=== PATIENT | male | born 1955 | race Caucasian/White ===

== ENCOUNTER → 2016-07-12 | Outpatient (CLI) | payer OTHER ==
[~2016-07-12] MED LIST: AMLO-110 PO; ASPEC81 PO; GABA-112 PO; HYDR25TA4 PO; IBUP-1449 PO; LISI-461 PO; METO50TA16 PO; MULT-506 PO; PRLSR20 PO; RNXER500 PO; SIMV40TA2 PO; TRAM-10 PO; ZCR20 PO; ZOLP10TA PO
--- NOTE | 2016-07-17 21:57 | PULMONARY FUNCTION TEST ---
INTERPRETATION: The spirometry reveals normal air flow with no change in FEV1 with the use of albuterol.
== END | disposition home or self-care (01) ==
LOC: C.RC 13:56
PROVIDERS: ATTEND Family Medicine
DX: R06.00 Dyspnea, unspecified (principal)

== ENCOUNTER → 2016-07-26 | Outpatient (CLI) | payer OTHER ==
--- NOTE | 2016-07-26 15:34 | DIAGNOSTIC IMAGING REPORT ---
LUMBAR SPINE MRI HISTORY: Back pain SPINAL STENOSIS TECHNIQUE: Multiplanar multisequence MRI of the lumbar spine was performed without the use of contrast. COMPARISON: None. FINDINGS: For the purpose of the report the L5-S1 disc space will be located on axial image 27 of 30. Moderate to significant degenerative disc changes throughout. This is most prominent at L2-L3 and L3-L4. Moderate reactive edematous change of vertebral endplates is seen at L2-L3. L1-L2: No significant central canal or neural foraminal narrowing. L2-L3: Mild/moderate broad-based disc herniation. Moderate impact anterior aspect of the thecal sac. Mild narrowing neuroforamina bilaterally. L3-L4: Broad-based disc herniation with moderate impact anterior thecal sac. Narrowing of the neuroforamina bilaterally. This is considered rather significant. L4-L5: Mild broad-based bulging disc. Moderate narrowing of the neuroforamina bilaterally. No significant impact upon the thecal sac. L5-S1: Broad-based bulging disc in contact with but showing no significant deformity of the thecal sac. Mild narrowing of the neuroforamina bilaterally. IMPRESSION: 1. Significant degenerative disc change L2-L3 and L3- L4. 2. Broad-based disc herniations L2-L3 and L3-L4 with moderate impact upon the anterior thecal sac and significant narrowing of the neuroforamina bilaterally primarily at L3-L4 3. Broad-based bulging disc L4-L5 and L5-S1 with narrowing of the neuroforamina bilaterally Electronically signed by: Clemente Priest M.D. 07/26/2016 3:31 PM Dictated Date/Time: 07/26/2016 3:25 PM
== END | disposition home or self-care (01) ==
LOC: C.MRIBC 14:46
PROVIDERS: ATTEND Orthopaedic Surgery Orthopaedic Surgery of the Spine
DX: M48.06 Spinal stenosis, lumbar region (principal); M51.26 Other intervertebral disc displacement, lumbar region

== ENCOUNTER → 2016-09-08 | Day surgery (SDC) | payer OTHER ==
[2016-08-08 09:04] VITALS: BMI 32.0
[2016-09-02 13:16] VITALS: Ht 175.3 cm; Wt 99.5 kg
[~2016-09-08] VITALS: Ht 175.3 cm; Wt 99.5 kg
== END | disposition home or self-care (01) ==
LOC: EDSTATUS 08:00 → C.PAT 11:49
PROVIDERS: ATTEND Orthopaedic Surgery Orthopaedic Surgery of the Spine
DX: M12.9 Arthropathy, unspecified (principal); Z53.8 Procedure and treatment not carried out for other reasons

== ENCOUNTER → 2017-06-06 | Outpatient (CLI) | payer BC ==
[~2017-06-06] MED LIST changes: -GABA-112 PO; -HYDR25TA4 PO; -SIMV40TA2 PO
--- NOTE | 2017-06-06 15:43 | DIAGNOSTIC IMAGING REPORT ---
CHEST 2 VIEWS ROUTINE CLINICAL HISTORY: R63.4 weight loss. Dyspnea. COMPARISON STUDY: 04/25/2013 FINDINGS: Prior median sternotomy. Diaphragms smooth. Lungs are considered clear. IMPRESSION: No acute process. The above report was generated using voice recognition software. It may contain grammatical, syntax or spelling errors. Electronically signed by: Clemente Priest M.D. 06/06/2017 3:42 PM Dictated Date/Time: 06/06/2017 3:41 PM
== END | disposition home or self-care (01) ==
LOC: C.RAD 15:05
PROVIDERS: ATTEND Family Medicine
DX: R63.4 Abnormal weight loss (principal); R06.00 Dyspnea, unspecified

== ENCOUNTER → 2017-07-19 | Outpatient (CLI) | payer BC ==
[~2017-07-19] MED LIST changes: +ASPI81TA28 PO; -IBUP-1449 PO; +RANO1000 PO
--- NOTE | 2017-07-19 09:02 | DIAGNOSTIC IMAGING REPORT ---
SCROTAL ULTRASOUND CLINICAL HISTORY: Right testicular pain. Abdominal pain. COMPARISON STUDY: None. TECHNIQUE: Grayscale and color and duplex Doppler sonography of the scrotum was performed. FINDINGS: The right testis measures 4.4 x 2.3 x 3.4 cm and the left measures 4.2 x 2.4 x 3.1 cm. Color flow within each testis is symmetric. There is no evidence for epididymitis. There is no testicular mass. IMPRESSION: Normal scrotal ultrasound. No evidence of testicular torsion. No evidence for epididymitis. Electronically signed by: Wali Osborn M.D. 07/19/2017 9:00 AM Dictated Date/Time: 07/19/2017 8:59 AM
--- NOTE | 2017-07-19 09:03 | DIAGNOSTIC IMAGING REPORT ---
ABDOMEN FOR HERNIA CLINICAL HISTORY: Right inguinal hernia. Testicular pain. COMPARISON STUDY: CT of the abdomen and pelvis July 28, 2009. TECHNIQUE: Sonography of the right groin was performed with and without stress maneuvers. FINDINGS: Note is made of a reducible fat-containing right inguinal hernia. IMPRESSION: Reducible fat-containing right inguinal hernia. Electronically signed by: Wali Osborn M.D. 07/19/2017 9:01 AM Dictated Date/Time: 07/19/2017 9:01 AM
== END | disposition home or self-care (01) ==
LOC: C.ULTR 07:55
PROVIDERS: ATTEND Surgery
DX: N50.819 Testicular pain, unspecified (principal); R10.9 Unspecified abdominal pain

== ENCOUNTER → 2017-07-24 | Outpatient (CLI) | payer BC ==
[2017-07-24 09:40] LABS: BASO % 0.4 %; BASO ABS # 0.02 K/uL (0-0.2); EOS ABS # 0.11 K/uL (0-0.5); HEMATOCRIT 42.7 % (42-52); HEMOGLOBIN 14.8 g/dL (14.0-18.0); IG# 0.01 K/uL (0.00-0.02); LYMPH % 34.8 %; LYMPH ABS # 1.92 K/uL (1.2-3.4); MEAN CELL VOLUME 95.7 fL (80-100); MEAN CORPUSCULAR HEMOGLOBIN 33.2 pg (25-34); MEAN CORPUSCULAR HGB CONC 34.7 g/dl (32-36); MEAN PLATELET VOLUME 9.3 fL (7.4-10.4); MONO % 5.1 %; MONO ABS # 0.28 K/uL (0.11-0.59); NEUT % 57.5 %; NEUT ABS # 3.18 K/uL (1.4-6.5); PLATELET COUNT 198 K/uL (130-400); RED CELL DISTRIBUTION WIDTH CV 12.3 % (11.5-14.5); WHITE BLOOD COUNT 5.52 K/uL (4.8-10.8)
[2017-07-24 09:53] LABS: BLOOD UREA NITROGEN 14 mg/dl (7-18); CARBON DIOXIDE 29 mmol/L (21-32); CREATININE 1.17 mg/dl (0.60-1.40); GLUCOSE 110 mg/dl (70-99); POTASSIUM 3.6 mmol/L (3.5-5.1); SODIUM 139 mmol/L (136-145)
== END | disposition home or self-care (01) ==
LOC: C.LAB 07:48
PROVIDERS: ATTEND Surgery
DX: Z01.812 Encounter for preprocedural laboratory examination (principal); K40.90 Unilateral inguinal hernia, without obstruction or gangrene, not specified as recurrent

== ENCOUNTER → 2017-08-03 | Day surgery (SDC) | payer BC ==
[~2017-08-03] VITALS: Ht 180.3 cm; Wt 98.0 kg
[~2017-08-03] MED LIST changes: -ASPEC81 PO; +ATROPINE SULFATE 0.1 MG/ML 5ML SYR IV PRN; +BUPIVACAINE/EPINEPHRINE 0.5% MPF 1:200,000 30 ML VIAL ONE; +CLINDAMYCIN IV 900 MG in DEXTROSE 5% 50ML IV SCH; +DEXAMETHASONE SOD INJ 4 MG/ML VIAL ONE; +EpHEDrine SULFATE 50MG/5ML SYR ONE; +EpHEDrine SULFATE INJ 50 MG/ML AMP IV PRN; +FENTANYL CITRATE INJ 50 MCG/1 ML 2 ML VIAL ONE; +GABA-112 PO; +GLYCOPYRROLATE INJ 0.2 MG/ML VIAL ONE; +KETOROLAC TROMETHAMINE 30 MG/ML VIAL ONE; +LACTATED RINGER'S 1000ML 1,000 ML IV SCH; +LIDOCAINE HCL 2% 2 ML VIAL (20MG/ML) ONE; +MIDAZOLAM HCL 1 MG/ML 2ML VIAL ONE; +NEOSTIGMINE METHYLSULFATE 5 MG/5 ML SYR ONE; +ONDANSETRON INJ 2 MG/ML 2 ML VIAL IV PRN; +ONDANSETRON INJ 2 MG/ML 2 ML VIAL ONE; +PHENYLEPHRINE 100MCG/ML 5ML SYR ONE; +PROPOFOL IV EMULSION 10 MG/ML 20 ML VIAL IV ONE; -RNXER500 PO; +ROCURONIUM BROMIDE 10 MG/ML 5 ML VIAL IV ONE; +SODIUM CHLORIDE 0.9% 1000ML 1,000 ML IV SCH; +TRAM-453 PO; +TRAMADOL HCL 50 MG TAB PO PRN
[2017-08-03 05:32] VITALS: BP 156/87; PULSE 72; TEMP 36.7; O2SAT 98; Ht 180.3 cm; Wt 98.0 kg
--- NOTE | 2017-08-03 06:51 | History & Physical Bridge Note ---
H&P Re-Evaluation Bridge Note: I have examined the patient, reviewed the History & Physical and in the interval since the performance of the History & Physical I have noted the following changes of clinical significance: No changes noted
--- NOTE | 2017-08-03 07:57 | [facility] Post Operative Brief Note ---
Immediate Operative Summary Operative Date Aug 03, 2017. Pre-Operative Diagnosis Right Inguinal Hernia Post-Operative Diagnosis RIH Procedure(s) Performed open RIH repair with plug/patch mesh Surgeon Dr. Hernández Tank Assembler Surgeon(s) Maribel Meraz PA-C Estimated Blood Loss 5 cc Findings Consistent with Post-Op Diagnosis Specimens none Anesthesia Type General Complication(s) none
--- NOTE | 2017-08-03 08:17 | Discharge Instructions ---
Discharge Instructions Date of Service Aug 03, 2017. Admission Reason for Admission: Right Inguinal Hernia Discharge Discharge Diagnosis / Problem: Right Inguinal Hernia Discharge Goals Goal(s): Decrease discomfort, Improve function Activity Recommendations Activity Limitations: as noted below Lifting Limitations: no more than 10 pounds Exercise/Sports Limitations: until after follow-up appointment May Resume Sexual Activity: after follow-up appointment Shower/Bathe: tomorrow Driving or Machine Use: resume 3 days after discharge . Instructions / Follow-Up Instructions / Follow-Up You have surgical glue, Dermabond, over your incision. You may shower tomorrow , but please do not soak or scrub your incision. Please follow-up with Dr. Hernández in the General Surgery Clinic in 1-2 weeks. Please call the office at [phone] to make an appointment if you do not have one already. Please call the office with any questions or concerns. Current Hospital Diet Patient's current hospital diet: Discharge Diet Recommended Diet: Regular Diet Procedures Procedures Performed: open RIH repair with plug/patch mesh Pending Studies Studies pending at discharge: no Medical Emergencies . Who to Call and When: Medical Emergencies: If at any time you feel your situation is an emergency, please call 911 immediately. . Non-Emergent Contact Non-Emergency issues call your: Primary Care Provider, Surgeon Call Non-Emergent contact if: temperature is above 101.5, your pain is not controlled, wound has increased drainage, wound has increased redness . "Provider Documentation" section prepared by Maribel Meraz. . [place] Drug Monitoring Program Search Results: patient reviewed within database, no issues identified
--- NOTE | 2017-08-03 08:50 | Anesthesiology Progress Note ---
Anesthesia Post Op Note Date & Time Aug 03, 2017 at 08:50 Vital Signs Pain Intensity: 0 Vital Signs Past 12 Hours Date Time Temp Pulse Resp B/P (MAP) Pulse Ox O2 Delivery O2 Flow Rate FiO2 08/03/17 08:40 73 15 101/59 96 Room Air 08/03/17 08:30 78 14 102/62 99 Oxymask 10 08/03/17 08:20 75 12 93/59 98 Oxymask 10 08/03/17 08:13 36.3 75 12 89/57 97 Oxymask 10 08/03/17 05:32 36.7 72 18 156/87 (110) 98 Room Air Notes Mental Status: alert / awake / arousable, participated in evaluation Pt Amnestic to Procedure: Yes Nausea / Vomiting: adequately controlled Pain: adequately controlled Airway Patency, RR, SpO2: stable & adequate BP & HR: stable & adequate Hydration State: stable & adequate Anesthetic Complications: no major complications apparent
[2017-08-03 10:00] VITALS: BP 109/66; PULSE 73; TEMP 36.5; O2SAT 94
--- NOTE | 2017-08-03 10:07 | [facility] Operative Report ---
Operative Report Operative Date Aug 03, 2017. Pre-Operative Diagnosis Right Inguinal Hernia Post-Operative Diagnosis RIH ( direct) Procedure(s) Performed open RIH repair with plug/patch mesh Surgeon Dr. Hernández High Pressure Kettle Operator Surgeon(s) Maribel Meraz PA-C Estimated Blood Loss 5 cc Specimens none Anesthesia Type General Complication(s) none Description of Procedure After informed consent was obtained the patient was taken the operating room and placed in supine position. After successful placement of the laryngeal mask airway the groin was shaved and sterilely prepped and draped in usual fashion. An inguinal incision was made with a 15 blade scalpel and carried down through the soft tissue using electrocautery. The external oblique aponeurosis was skeletonized. A fresh blade was used to make an incision and then Metzenbaum scissors were used to extend this distally through the external ring as well as for several centimeters proximally. Once in the inguinal canal I used blunt finger dissection to free up the cord and cord structures. I was able to gently tease the cord off of the pubic bone and placed a [place] drain around it. There was a large direct inguinal hernia noted. It was easily reducible. We inspected the cord and cord structures using blunt dissection with small amounts of electrocautery. There was no evidence of an indirect hernia. We then thoroughly irrigated the wound. I decided to use a plug/patch technique. I place the plug and secured it to Tay's ligament distally and surround muscle medially and the shelving portion of Poupart's ligament laterally. I secured it using 0-nylon. Next I used a polypropylene burt-holed mesh as an onlay. It was secured distally to Tay's ligament, laterally along the shelving portion of Poupart's ligament and medially along the midline musculature. 0 Ethibond was used for the suturing. The "arms" of the mesh were wrapped around behind the cord and cord structures and again secured to underlying muscle. The mesh laid nice and flat and tension-free and did not impinge on the cord structures themselves. We thoroughly irrigated the wound. There was adequate hemostasis. I injected Marcaine around the edges of the mesh for postoperative analgesia. We then closed the external oblique aponeurosis with 2-0 Vicryl in a running fashion. Soft tissue was irrigated and closed in multiple layers using 3-0 Vicryl for the deep layers and 4-0 Monocryl for the skin. Some additional Marcaine was injected around the skin incision. We then used a skin glue as a dressing. The patient was awaken extubated and transferred to recovery in stable condition. My physician's [employer] assistant manager was present throughout the entire procedure. She helped prep the patient. Helped with retraction throughout the case to aid my dissection, assisted with wound closure as well as dressing placement. I attest to the content of the Intraoperative Record and any orders documented therein. Any exceptions are noted below. I attest to the content of the Intraoperative Record and any orders documented therein. Any exceptions are noted below.
== END | disposition home or self-care (01) ==
LOC: C.ACU 04:49
PROVIDERS: ATTEND Surgery
DX: K40.90 Unilateral inguinal hernia, without obstruction or gangrene, not specified as recurrent (principal); I25.10 Atherosclerotic heart disease of native coronary artery without angina pectoris; K21.9 Gastro-esophageal reflux disease without esophagitis; F32.9 Major depressive disorder, single episode, unspecified; E78.00 Pure hypercholesterolemia, unspecified; I10 Essential (primary) hypertension; Z95.1 Presence of aortocoronary bypass graft; Z79.82 Long term (current) use of aspirin; Z90.49 Acquired absence of other specified parts of digestive tract; Z88.5 Allergy status to narcotic agent; Z82.49 Family history of ischemic heart disease and other diseases of the circulatory system; Z81.8 Family history of other mental and behavioral disorders